=== PATIENT | male | born 2000 | race Two or more races ===

== ENCOUNTER 2025-02-24 12:10 | Emergency (ER) | payer OTHER ==
[~2025-02-24] VITALS: Ht 177.8 cm; Wt 81.6 kg
[~2025-02-24 12:10] MED LIST: 8 HOUR650 MG PO; BACLOFEN10 MG PO; DICLOFENAC SODI75 MG PO
[2025-02-24 13:45] LABS: HEMATOCRIT 39.6 % (40.1-51.0); HEMOGLOBIN 13.6 g/dL (13.7-17.5); RED BLOOD COUNT 4.34 M/uL (4.63-6.08)
[2025-02-24 13:46] LABS: BASO % 0.5 % (0.1-1.2); EOS # 0.06 (0.04-0.54); EOS % 1.6 % (0.7-7.0); LYMPH # 1.27 (1.18-3.74); LYMPH % 34.2 % (19.3-53.1); MEAN CORPUSCULAR HEMOGLOBIN 31.3 pg (25.6-32.2); MONO # 0.29 (0.24-0.82); MONO % 7.8 % (4.7-12.5); NEUT # 2.06 (1.56-6.13); NEUT % 55.6 % (34.0-71.1); PLATELET COUNT 204 K/uL (163-369); RED CELL DISTRIBUTION WIDTH 11.9 % (11.6-14.4)
[2025-02-24 14:08] LABS: INR 1.05; PARTIAL THROMBOPLASTIN TIME 30.5 SECONDS (22.0-34.0); PROTHROMBIN TIME 11.4 SECONDS (9.0-11.5)
[2025-02-24 14:10] LABS: ALBUMIN 3.8 gm/dL (3.4-5.0); BILIRUBIN TOTAL 0.5 mg/dL (0.3-1.2); CALCIUM 8.8 mg/dL (8.5-10.1); CREATININE SERUM 1.28 mg/dL (0.70-1.30); GFR 68.47; GLOBULINA 3.5 G/DL (2.4-3.5); POTASSIUM 4.15 mEq/L (3.5-5.1); TOTAL PROTEIN 7.3 gm/dL (6.4-8.2)
== END 2025-02-24 17:36 | disposition home or self-care (01) ==
LOC: ER 12:19
PROVIDERS: General Practice
DX: I67.6 Nonpyogenic thrombosis of intracranial venous system (principal); Z88.6 Allergy status to analgesic agent
CPT/HCPCS: 70545